=== PATIENT | female | born 1950 | race Caucasian/White ===

== ENCOUNTER → 2023-05-14 13:59 | Outpatient (REF) | payer MEDICARE, OTHER, SELFPAY | LOC: RAD 13:59 | PROVIDERS: ATTENDING PHYSICIAN Podiatrist; FAMILY PHYSICIAN Internal Medicine | DX: I70.90 Unspecified atherosclerosis (principal) | CPT/HCPCS: 93922; 93925 ==

== ENCOUNTER → 2023-06-24 21:05 | Outpatient (REF) | payer MEDICARE, OTHER, SELFPAY | LOC: CLAB 21:05 | PROVIDERS: ATTENDING PHYSICIAN Otolaryngology | DX: J34.89 Other specified disorders of nose and nasal sinuses (principal); M35.00 Sjogren syndrome, unspecified | CPT/HCPCS: 87070; 87205 ==

== ENCOUNTER → 2023-07-28 12:22 | Outpatient (REF) | payer MEDICARE, OTHER, SELFPAY ==
[2023-07-28 13:04] LABS: Urine Albumin Trace (Neg - Trace); Urine Bilirubin Negative (Negative); Urine Character Clear (Clear); Urine Color Yellow; Urine Glucose Negative (Negative); Urine Ketone Negative (Negative); Urine Leukocyte Trace (Negative); Urine Nitrite Negative (Negative); Urine Occult Blood Negative (Negative); Urine Specific Gravity 1.015 (<1.030); Urine Urobilinogen Negative (Neg - 1+)
[2023-07-28 13:48] LABS: C-Reactive Protein < 5.00 mg/L (0.0-10.00)
[2023-07-28 13:50] LABS: ALT (SGPT) 27 U/L (0-35); AST (SGOT) 33 U/L (14-36); Albumin 4.9 g/dl (3.5-5.0); Alkaline Phosphatase 56 U/L (38-126); Blood Urea Nitrogen 36 mg/dl (7-17); Calcium 9.6 mg/dl (8.4-10.2); Carbon Dioxide 21 mmol/L (22-30); Chloride 105 mmol/L (98-107); Creatine Phosphokinase 147 U/L (30-135); Glucose 101 mg/dl (70-99); Sodium 134 mmol/L (135-145); Total Bilirubin 0.5 mg/dl (0.2-1.3); Total Protein 7.9 g/dl (6.3-8.2); eGFR 39.73
[2023-07-28 14:08] LABS: Urine Hyaline Cast 0-2 /LPF (0-2)
[2023-07-28 14:09] LABS: Urine Red Blood Cell None Seen /HPF (0-2)
[2023-07-28 14:36] LABS: Erythrocyte Sed Rate 6 mm/hour (0-20)
[2023-07-31 01:13] LABS: ds-DNA Ab, IgG Reflex To Titer 2 IU (0-24)
== END ==
LOC: REG 12:22
PROVIDERS: ATTENDING PHYSICIAN Internal Medicine Rheumatology; FAMILY PHYSICIAN Internal Medicine
DX: G62.9 Polyneuropathy, unspecified (principal); M35.00 Sjogren syndrome, unspecified; M79.10 Myalgia, unspecified site; N25.89 Other disorders resulting from impaired renal tubular function; R53.83 Other fatigue; Z79.899 Other long term (current) drug therapy
CPT/HCPCS: 36415; 80053; 81003; 81015; 82550; 85652; 86140; 86225

== ENCOUNTER → 2023-09-18 09:19 | Outpatient (REF) | payer MEDICARE, OTHER, SELFPAY | LOC: RAD 09:19 | PROVIDERS: ATTENDING PHYSICIAN Internal Medicine Pulmonary Disease; FAMILY PHYSICIAN Family Medicine | DX: J45.909 Unspecified asthma, uncomplicated (principal) | CPT/HCPCS: 71250 ==

== ENCOUNTER → 2024-02-10 12:48 | Outpatient (REF) | payer MEDICARE, OTHER, SELFPAY | LOC: RCS 12:48 | PROVIDERS: ATTENDING PHYSICIAN Internal Medicine; FAMILY PHYSICIAN Family Medicine | DX: I25.10 Atherosclerotic heart disease of native coronary artery without angina pectoris (principal); R01.1 Cardiac murmur, unspecified | CPT/HCPCS: 93306 ==

== ENCOUNTER 2024-02-15 09:46 | Day surgery (SDC) | payer MEDICARE, OTHER, SELFPAY | END 2024-02-15 12:40 | disposition home or self-care (01) | LOC: CATH 09:46 | PROVIDERS: ATTENDING PHYSICIAN Student in an Organized Health Care Education/Training Program; FAMILY PHYSICIAN Family Medicine; OTHER PHYSICIAN Internal Medicine | DX: I08.1 Rheumatic disorders of both mitral and tricuspid valves (principal); I25.10 Atherosclerotic heart disease of native coronary artery without angina pectoris; Z95.5 Presence of coronary angioplasty implant and graft; I12.9 Hypertensive chronic kidney disease with stage 1 through stage 4 chronic kidney disease, or unspecified chronic kidney disease; N18.30 Chronic kidney disease, stage 3 unspecified; E78.5 Hyperlipidemia, unspecified; K21.9 Gastro-esophageal reflux disease without esophagitis; Z86.73 Personal history of transient ischemic attack (TIA), and cerebral infarction without residual deficits; Z87.891 Personal history of nicotine dependence; Z79.82 Long term (current) use of aspirin | CPT/HCPCS: 93312; 93320; 93325 ==

== ENCOUNTER → 2024-05-03 13:05 | Outpatient (REF) | payer MEDICARE, OTHER, SELFPAY | LOC: RAD 13:05 | PROVIDERS: ATTENDING PHYSICIAN Surgery Vascular Surgery; FAMILY PHYSICIAN Family Medicine | DX: I73.9 Peripheral vascular disease, unspecified (principal) | CPT/HCPCS: 93922; 93925 ==

== ENCOUNTER → 2024-05-08 13:16 | Outpatient (REF) | payer MEDICARE, OTHER, SELFPAY | LOC: HWRAD 13:16 | PROVIDERS: ATTENDING PHYSICIAN Internal Medicine Rheumatology; FAMILY PHYSICIAN Family Medicine | DX: M81.0 Age-related osteoporosis without current pathological fracture (principal) | CPT/HCPCS: 77080 ==

== ENCOUNTER → 2024-05-26 14:53 | Outpatient (REF) | payer MEDICARE, OTHER, SELFPAY | LOC: RAD 14:53 | PROVIDERS: ATTENDING PHYSICIAN Specialist; FAMILY PHYSICIAN Family Medicine | DX: N39.0 Urinary tract infection, site not specified (principal); N20.1 Calculus of ureter; N20.0 Calculus of kidney | CPT/HCPCS: 74018; 87086 ==

== ENCOUNTER → 2024-06-14 13:13 | Outpatient (REF) | payer MEDICARE, OTHER, SELFPAY | LOC: HWWDC 13:13 | PROVIDERS: ATTENDING PHYSICIAN Family Medicine | DX: Z12.31 Encounter for screening mammogram for malignant neoplasm of breast (principal) | CPT/HCPCS: 77063; 77067 ==

== ENCOUNTER → 2024-07-06 14:03 | Outpatient (REF) | payer MEDICARE, OTHER, SELFPAY | LOC: HWRAD 14:03 | PROVIDERS: ATTENDING PHYSICIAN Specialist; FAMILY PHYSICIAN Internal Medicine Critical Care Medicine | DX: N20.0 Calculus of kidney (principal) | CPT/HCPCS: 74176 ==

== ENCOUNTER 2024-10-01 10:13 | Emergency (ER) | payer MEDICARE, OTHER, SELFPAY ==
[2024-10-01 10:17] VITALS: BP 138/58
[2024-10-01 10:58] LABS: COVID-19 Antigen Negative (Negative)
--- NOTE | 2024-10-01 11:56 | ED.GENMED ---
History of Present Illness
General
Chief Complaint: Back Pain
Source: patient
Exam Limitations: none
Time Seen by Provider: 10/01/24 11:34
Nursing documentation reviewed up to this point in time: agreed with
History of Present Illness
History of Present Illness:
Patient is a 74-year-old female with past medical history of chronic back pain, renal tubular acidosis, CAD with stent presents to the ER for evaluation. She reports for the past several days she has had left lower back pain. She does feel that
this is her chronic back pain just acting up. She denies any recent fall or injury. She reports pain is worse when she moves. She has tried Tylenol and Salonpas without relief. It does not radiate to her leg. She reports is not in her' kidney
area.' She denies any noted frequency urgency or dysuria. She denies any saddle paresthesia denies any bowel or bladder incontinence. She does report a low-grade fever less than of 100. She denies any urinary symptoms as documented she denies
any recent cough cold. She denies any nausea vomiting abdominal pain. No chest pain shortness of breath.
She has seen Dr. Monet who recommended surgery but she did not want to do that. She also saw specialist at [facility] and have epidural without relief. Last epidural was months ago. She is scheduled to see Dr. Monet again October 10. Patient
lives alone. She drove herself to the ER. She is requesting an MRI.
Past History
Past History
ED Past Medical History: Asthma, CAD, Fibromyalgia, GERD, HTN, Hypercholesterolemia, Other (Sj�gren syndrome, insufficiency, kidney stones, osteoporosis, impaired vision, PNA, Neuropathy of feet to mid perla, hands and ears) and Other (Rheumatoid
arthritis/lupus, frequent UTIs, Unstable angina, PNA)
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
lithotripsies)
Social History
Tobacco: Former smoker
Alcohol: Occasional
Drug: None
Personal:
Living: with family
Employment: Retired
Family History
Family History: Other
Phy Exam
General Physical Exam
General Presentation: no apparent distress
General age: appears stated age
General Skin: warm and dry
General Habitus: normal
General Mental: alert
General Hydration: appears well hydrated
Cardiovascular Exam
Cardiovascular Exam: regular rate/rhythm, no murmur and normal peripheral pulses
Pulmonary Exam
Pulmonary Exam: lungs clear
Neurological Exam
Neurological Exam: alert, oriented x3, no motor deficits, no sensory deficits and other (Normal distal sensation normal toe reflexes bilaterally normal strength ambulatory with a steady gait slow but steady)
Musculoskeletal Exam
Musculoskeletal Exam: other (Normal inspection to back no CVA tenderness no redness to back no midline cervical thoracic or lumbar tenderness tender to the left lateral buttock/paralumbar region)
Skin Exam
Skin Exam: normal color and warm/dry
Psychiatric Exam
Psychiatric Exam: normal mood/affect
Course
Orders/Labs/Results
Orders:
Orders
10/01/24 10:23
COVID-19 Antigen Urgent
Source: Nasal Swab
Influenza A+B Rapid Molecular Urgent
RAKEL Source: Nasal Swab
Specimen Description:
10/01/24 12:22
Urinalysis Reflex To Culture Urgent
Date Specimen was Collected: 10/01/24
Time Specimen was Collected: 12:20
Vital Signs
Initial and Last Documented VS:
Initial Vital Signs
Temp Pulse Resp BP Pulse Ox
99.6 F 99 16 138/58 100
10/01/24 10:17 10/01/24 10:17 10/01/24 10:17 10/01/24 10:17 10/01/24 10:17
Last Documented Vital Signs
Temp Pulse Resp BP Pulse Ox
99.6 F 99 16 138/58 100
10/01/24 10:17 10/01/24 10:17 10/01/24 10:17 10/01/24 10:17 10/01/24 11:58
Printing Plate Maker consulted with Physician
Printing Plate Maker consulted with physician?: Yes (Christian )
Name of Physician Consulted: christian
MDM/Problems Addressed
MDM/Problems Addressed:
As documented patient is 74-year-old female with chronic back pain followed Dr. Monet and has seen [facility] in the past. She has not had any procedures or epidurals for the past several months. She feels that this is an exacerbation
of her chronic back pain and left lateral back. She denies radiation. She denies any numbness tingling weakness. She denies any saddle paresthesia or bowel bladder incontinence. She does report a low-grade fever yesterday temp only 99 here. Her
urinalysis is negative she denies any frequency urgency or dysuria. 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
Symptoms of patient exam are consistent with likely muscular pain. She is nontoxic-appearing, with a normal neurological exam steady gait. in no acute distress .no evidence of concerning findings for epidural abscess or infection. Patient does
not present like a renal stone, no symptoms and negative UA for pyelonephritis
Case reviewed ED physician offered and discussed CAT scan of her abdomen to look at her kidneys(since she does have a history of acute tubular necrosis) however she does not want this. I also offered her imaging of her lumbar spine she again does
not want this. She wants an MRI of her low back. I did explain the patient that she has no neurological deficits and that is not a test that is routinely done in the ER. She drove herself here and cannot take ibuprofen and so I will send a
prescription for muscle relaxant to the pharmacy. She has an appointment with Dr. Monet October 10 I instructed her to call Wednesday to see if she can expedite the appointment. And she is to return if any worsening of symptoms. Return precautions
given.
Chronic conditions affecting care:
Chronic back pain, acute tubular necrosis
*Pulse Oximetry
SaO2: 100
Oxygen Mode of Delivery: Room air
Patient hypoxic: no
*Critical Care Note
Total Time (30-74mins, 75-104mins- exclusive of procedures): Not Applicable
ED Attending Note
-
Portions of this chart may have been created with voice recognition software.� Occasional wrong word or��sound alike� substitutions may have occurred due to the inherent limitations of voice recognition software.
Discharge Plan
Departure
Patient Disposition: Home (Routine Discharge)
Date of Disposition: 10/01/24
Time of Disposition: 12:53
Patient with high blood pressure during this ER visit?: Yes
Condition: Fair
Covid-19: Not Applicable
Discharge Problem:
Low back pain
Instructions: Low Back Pain (DC), BLOOD PRESSURE
Prescriptions:
New
cyclobenzaprine 10 mg tablet
10 mg PO Q8H PRN (Reason: muscle pain) Qty: 10 0RF
lidocaine 5 % adhesive patch,medicated
1 patch topical DAILY Qty: 15 0RF
No Action
alprazolam 0.25 MG tablet
0.25 mg PO HS
duloxetine 60 MG capsule,delayed release(DR/EC)
60 mg PO DAILY
sodium bicarbonate 650 MG tablet
650 mg PO TID
nitroglycerin 0.4 MG tablet, sublingual
0.4 mg sublingual [id number] PRN (Reason: chest pain)
Patient Comments:
never taken
famotidine [Pepcid] 40 MG tablet
40 mg PO .AT DINNER
gabapentin 100 MG capsule
100 mg PO TID
vitamin B complex Tablet Extended Release
1 tab PO BID
mycophenolate mofetil [CellCept] 500 mg Tablet
500 mg PO BID
Patient Comments:
on hold d/t bronchitis/PNA in 07/2022
cevimeline [Evoxac] 30 mg Capsule
30 mg PO QID
Rx Instructions:
must take per patient
omeprazole 20 mg Capsule,Delayed Release(Dr/Ec)
20 mg PO DAILY
hydroxychloroquine [Plaquenil] 200 mg Tablet
200 mg PO HS
zolpidem [Ambien] 10 mg Tablet
10 mg PO HS
Vitamin D3
1 cap PO QID
Patient Comments:
'extreme' dry eye
magnesium hydroxide [Milk of Magnesia] 400 mg/5 mL suspension
30 ml PO HS PRN (Reason: Constipation) Qty: 1 0RF
enalapril maleate [Vasotec] 5 mg Tablet
5 mg PO DAILY Qty: 0 0RF
Rx Instructions:
hold systolic blood pressure <135 if taking opioid
amitriptyline 10 mg Tablet
10 mg PO HS
aspirin 81 mg Tablet,Chewable
81 mg PO DAILY
coenzyme Q10 [CoQ-10] 100 mg Capsule
100 mg PO BID
Referrals:
Yasir Monet DO [Non-Admitting Privileges, Orthopedics]
Eva Benitez DO [Family Provider, Internal Medicine]
Activity Restrictions/Additional Instructions:
As discussed you may continue to take Tylenol for discomfort. You may take Flexeril which is a muscle laxer. No driving or drink alcohol with taking this medication. It may cause drowsiness. Take only as needed. A prescription for lidocaine
patch was also sent to your pharmacy. Please call Dr. Monet's office tomorrow to make an appointment as soon as possible. Return if any worsening of symptoms of increased pain abdominal pain nausea vomiting increased back pain fever chills or any
further concerns.
Interventions
Interventions:
*Risk Screen - Suicide Last Done: 10/01/24 11:18
*Neglect/Abuse Screening Last Done: 10/01/24 11:18
ED-Musculoskeletal Assessment Last Done: 10/01/24 11:18
Discharge Date and Time
Print Language: ITALIAN
[2024-10-01 12:31] LABS: Urine Character Clear (Clear)
[2024-10-01] MEDS: LIDOCAINE 4% PATCH 1 PATCH TOPICAL (12:54)
== END 2024-10-01 13:06 | disposition home or self-care (01) ==
LOC: EMR 10:13
PROVIDERS: EMERGENCY PHYSICIAN Emergency Medicine; FAMILY PHYSICIAN Internal Medicine Critical Care Medicine
DX: M54.50 Low back pain, unspecified (principal); I25.10 Atherosclerotic heart disease of native coronary artery without angina pectoris; I10 Essential (primary) hypertension; E78.00 Pure hypercholesterolemia, unspecified; J45.909 Unspecified asthma, uncomplicated; M06.9 Rheumatoid arthritis, unspecified; M79.7 Fibromyalgia; M81.0 Age-related osteoporosis without current pathological fracture; Z87.440 Personal history of urinary (tract) infections; Z87.442 Personal history of urinary calculi; Z87.891 Personal history of nicotine dependence; Z95.5 Presence of coronary angioplasty implant and graft
CPT/HCPCS: 99282; 81003; 87502; 87811